=== PATIENT | female | born 1990 | race African-American/Black ===

== ENCOUNTER 2017-03-12 10:25 | Emergency (ER) | payer OTHER ==
[~2017-03-12] VITALS: Ht 162.6 cm; Wt 49.9 kg
--- NOTE | ~2017-03-12 | US106 ---
[facility] A Service of [facility] RADIOLOGY TEXT RESULTS PATIENT: ALOK HERBERT LOCATION: [facility] : 86 UNIT #: [id number] AGE: [address]: Jessica Daigle APRN SEX: F ORDER DR: [id number] [facility] [address] [place], [place] [address] [id number] E MR#: [id number] Acc #: [id number] NAME: ALOK HERBERT : 1990 SEX: F STUDY DATE/TIME: 03/12/2017 13:27 UNIT: [facility] ROOM: STUDY DESCRIPTION: US Preg Uterus Transvaginal Attending Physician: Jessica Daigle A.P.R.N. Ordering Physician: Ed Tyler Gongora M.D. Primary Care Physician: Generic Doctor Not In System MEDICAL IMAGING REPORT This report is preliminary unless electronic signature is present EXAM Transvaginal pelvic ultrasound, 03/12/2017 HISTORY Early with pain. History of miscarriages. Patient has had right adnexal pain for 2 weeks. FINDINGS Transabdominal imaging followed by transvaginal imaging was performed. The ovaries cannot be seen on the transabdominal imaging. The uterus is about 8 x 5 x 5 cm. There is a small fluid collection in the endometrial cavity consistent with a gestational sac that is about 5 mm in maximum dimension, giving an estimated gestational age of 5 weeks 2 days. No yolk sac or pole is visible. The right ovary is visualized and it is about 2.3 cm in diameter and appears normal with small follicles. The left ovary has a complex 2.7 cm cyst within it and the ovary measures about 4.2 cm in diameter. There is flow in each ovary. IMPRESSION 1. There is a small gestational sac visualized in the endometrial cavity. No pole or heartbeat is identified and this could represent an early or a blighted ovum. 2. The left ovary has a complex, septated cyst measuring about 2.7 cm in diameter and otherwise both ovaries are normal, with normal flow. Dictated by... Chris Garcia M.D. THIS IS AN ELECTRONICALLY VERIFIED REPORT Chris Garcia M.D. at 03/13/2017 9:21 AM FEL/psc [facility] A Service of [facility] RADIOLOGY TEXT RESULTS PATIENT: ALOK HERBERT LOCATION: [facility] : [birth year] UNIT #: [id number] AGE: [address]: Jessica Daigle APRN SEX: F ORDER DR: TD: 03/13/2017 08:18 JOB #: [id number] MEDICAL IMAGING REPORT Page 1 of 1 COPY
[2017-03-12 12:17] LABS: URINE SOURCE CLEAN CATCH
[2017-03-12 12:23] LABS: URINE APPEARANCE CLOUDY; URINE BILIRUBIN NEG (NEG); URINE BLOOD NEG (NEG); URINE COLOR YELLOW; URINE GLUCOSE NEG (NEG); URINE KETONE NEG (NEG); URINE LEUKOCYTE ESTERASE 1+ (NEG); URINE NITRATE NEG (NEG); URINE PROTEIN NEG (NEG); URINE SPECIFIC GRAVITY 1.024 (1.003-1.035)
[2017-03-12 12:25] LABS: CULTURE INDICATED? YES; URBCS1 AUWI 0-2 /[HPF] (0-2); URINE BACTERIA AUWI 1+ (NEGATIVE); URINE SQUAMOUS EPITHELIAL CELL MOD /[HPF]
[2017-03-12 12:44] LABS: BASOPHIL% 0.9 % (0-2.5); EOSINOPHIL# 0.1 X10e3 (0-0.7); EOSINOPHIL% 3.1 % (0.0-7.0); HEMATOCRIT 30.6 % (35.0-45.0); LYMPHOCYTE# 1.5 X10e3 (1.0-3.5); MEAN CELL VOLUME 79.2 FL (83-96); MEAN CORPUSCULAR HEMOGLOBIN 25.9 PG (28-34); MEAN CORPUSCULAR HGB CONC 32.8 g/dL (30-36); MEAN PLATELET VOLUME 10.3 FL (6.5-11.5); MONOCYTE# 0.4 X10e3 (0-1.0); MONOCYTE% 7.7 % (3.0-12.0); NEUTROPHIL# 2.5 X10e3 (1.5-7.1); NEUTROPHIL% 55.3 % (40-75); PLATELET COUNT 233 X10e3 (140-420); RED BLOOD COUNT 3.86 X10e (3.90-5.30); RED CELL DISTRIBUTION WIDTH 17.5 % (11.0-15.5); WHITE BLOOD COUNT 4.5 X10e3 (4.0-10.5)
[2017-03-12 12:46] LABS: DIFF IND NO
[2017-03-12 13:06] LABS: ALBUMIN SERUM 3.9 g/dL (3.5-5.0); BILIRUBIN, DIRECT 0.1 mg/dL (0.0-0.2); BILIRUBIN,INDIRECT 0.2 mg/dL (0.0-0.9); BILIRUBIN,TOTAL 0.3 mg/dL (0.2-2.0); BUN/CREATININE RATIO 17.5; CALCIUM SERUM 8.5 mg/dL (8.4-10.2); CREATININE SERUM 0.4 mg/dL (0.6-1.4); GLOM FILT RATE Estimated 164.3 mL/min (>60); POTASSIUM 3.4 mmol/L (3.5-5.1); PROTEIN TOTAL SERUM 7.1 g/dL (6.0-8.3)
[2017-03-15 04:51] LABS: CHLAMYDIA TRACH Not Detected (Not Detected); N GONOR Not Detected (Not Detected)
== END 2017-03-12 16:30 | disposition home or self-care (01) ==
LOC: CED 10:25 → CFTX 10:25
PROVIDERS: Nurse Practitioner
DX: O23.11 Infections of bladder in pregnancy, first trimester (principal); O23.591 Infection of other part of genital tract in pregnancy, first trimester; O99.281 Endocrine, nutritional and metabolic diseases complicating pregnancy, first trimester; E87.6 Hypokalemia
CPT/HCPCS: 36415; 76817; 80048; 80076; 81003; 84702; 84703; 85025; 86850; 86900; 86901; 87086; 87491; 87591; 87808; 87905; 99284